=== PATIENT | female | born 1990 | race Two or more races ===

== ENCOUNTER 2023-08-21 16:44 | Emergency (ER) | payer OTHER ==
[~2023-08-21] VITALS: Ht 149.9 cm; Wt 56.7 kg
[2023-08-21] MEDS ORDERED: ZOFRAN8 MG PO (17:01)
[2023-08-21] MEDS ORDERED: OBSTETRIX DHA1 EAC1 PO (17:01)
[2023-08-21 17:47] LABS: HEMATOCRIT 35.5 % (36.0-45.00); MEAN CELL VOLUME 86.4 fL (80.00-100.00); MEAN CORPUSCULAR HEMOGLOBIN 29.3 pg (27.00-32.0); MEAN CORPUSCULAR HGB CONC 33.8 g/dl (32.0-36.0); PLATELET COUNT 329 K/uL (150-450); RED BLOOD COUNT 4.11 M/uL (4.00-6.00); RED CELL DISTRIBUTION WIDTH 12.4 % (11.5-14.5)
[2023-08-21 18:16] LABS: ALBUMIN 3.6 gm/dL (3.4-5.0); BILIRUBIN TOTAL 1.18 mg/dL (0.3-1.2); CALCIUM 9.3 mg/dL (8.5-10.1); CREATININE SERUM 0.66 mg/dL (0.55-1.02); GFR 104.46; GLOBULINA 4.3 G/DL (2.4-3.5); POTASSIUM 4.07 mEq/L (3.5-5.1); TOTAL PROTEIN 7.9 gm/dL (6.4-8.2)
[2023-08-21] MEDS ORDERED: PEPCID AC20 MG PO (20:27)
[2023-08-21] MEDS ORDERED: ONDANSETRON ODT8 MG PO (20:27)
== END 2023-08-21 20:30 | disposition home or self-care (01) ==
LOC: ER 16:45
PROVIDERS: General Practice
DX: O99.611 Diseases of the digestive system complicating pregnancy, first trimester (principal); K52.89 Other specified noninfective gastroenteritis and colitis; K92.89 Other specified diseases of the digestive system; Z3A.11 11 weeks gestation of pregnancy